=== PATIENT | male | born 1975 | race Asian ===

== ENCOUNTER 2023-12-27 13:43 | Emergency (ER) | payer OTHER ==
[~2023-12-27] VITALS: Ht 175.3 cm; Wt 78.1 kg
[2023-12-27] MEDS: KETOROLAC 30 MG/ML 1ML VIAL IV ONE (17:23)
[2023-12-27] MEDS: METOCLOPRAMIDE INJ 10MG/2ML VIAL IV ONE (17:23)
[2023-12-27] MEDS: NS 1,000 ML IV ONE (17:23)
[2023-12-27] MEDS: diphenhydrAMINE 50MG/ML VIAL IV ONE (17:23)
[2023-12-27] MEDS ORDERED: RIZA10TA64 PO (19:52)
[2023-12-27 20:07] VITALS: BP 132/81; TEMP 99.3; O2SAT 98
== END 2023-12-27 20:06 | disposition home or self-care (01) ==
LOC: M ED 13:43
DX: G43.909 Migraine, unspecified, not intractable, without status migrainosus (principal); Z79.52 Long term (current) use of systemic steroids
CPT/HCPCS: 70450; 96374; 96375; 99284; J1100; J1200; J1885; J2765

== ENCOUNTER 2023-12-31 12:30 | Inpatient (IN) | payer OTHER ==
[~2023-12-31] VITALS: Ht 175.3 cm; Wt 77.2 kg
[~2023-12-31 12:30] MED LIST: RIZA10TA64 PO
[2023-12-31] MEDS: diazePAM 10MG/2ML SYRINGE IV ONE (13:19)
[2023-12-31] MEDS: KETOROLAC 30 MG/ML 1ML VIAL IV ONE (13:20)
[2023-12-31] MEDS: NS 1,000 ML IV ONE ×2 (13:21→13:25)
[2023-12-31 13:24] LABS: BASO % 0.4 % (0.0-1.0); EOS % 0.2 % (0.0-3.0); HEMATOCRIT 46.3 % (42.0-52.0); HEMOGLOBIN 16.4 g/dl (13.5-17.5); LYMPH # 1.5 10^3/uL (1.5-5.0); LYMPH % 14.5 % (24.0-44.0); MEAN CORPUSCULAR HEMOGLOBIN 30.2 pg (27.0-33.0); MEAN CORPUSCULAR HGB CONC 35.4 g/dl (32.0-36.5); MEAN CORPUSCULAR VOLUME 85.3 fl (80.0-96.0); MONO # 0.4 10^3/uL (0.0-0.8); MONO % 3.8 % (2.0-8.0); NEUTROPHILS # 8.3 10^3/uL (1.5-8.5); NEUTROPHILS % 80.5 % (36.0-66.0); PLATELET COUNT, AUTOMATED 349 10^3/uL (150-450); RED BLOOD COUNT 5.43 10^6/uL (4.30-6.10); WHITE BLOOD COUNT 10.3 10^3/uL (4.0-10.0)
[2023-12-31 13:42] LABS: ALBUMIN 3.9 G/DL (3.2-5.2); ALKALINE PHOSPHATASE 72 U/L (46-116); ALT/SGPT 29 U/L (7.0-40); AST/SGOT 19 U/L (<34); BILIRUBIN,DIRECT 0.2 MG/DL (<0.4); BILIRUBIN,TOTAL 0.6 MG/DL (0.3-1.2); BLOOD UREA NITROGEN 17 MG/DL (9-23); CALCIUM LEVEL 9.3 MG/DL (8.5-10.1); CARBON DIOXIDE LEVEL 25 MMOL/L (20-31); CHLORIDE LEVEL 102 MMOL/L (98-107); CREATININE FOR GFR 0.84 MG/DL (0.70-1.30); GLOMERULAR FILTRATION RATE > 60.0 (>60); GLUCOSE, FASTING 125 MG/DL (60-100); POTASSIUM SERUM 3.7 MMOL/L (3.5-5.1); SODIUM LEVEL 133 MMOL/L (136-145); TOTAL PROTEIN 7.4 G/DL (5.7-8.2)
[2023-12-31 13:44] LABS: OSMOLALITY SERUM 288 MOSM/KG (275-295)
[2023-12-31] MEDS ORDERED: ACETAMINOPHEN TAB 650MG DOSE (2X325MG) PO PRN (17:05)
[2023-12-31] MEDS: LIDOCAINE 2% W/EPINEPHRINE 20ML VIAL **PRES FREE INJ ONE (17:10)
[2023-12-31] MEDS: MECLIZINE 25 MG TABLET PO ONE (17:36)
[2023-12-31 17:44] LABS: CSF TUBE# CELL CNT TUBE 4
[2023-12-31 17:45] LABS: APPEARANCE, CSF CLEAR (CLEAR); COLOR, CSF COLORLESS (COLORLESS)
[2023-12-31 18:08] LABS: CSF TUBE# GLU TUBE 2
[2023-12-31 18:25] LABS: CSF TUBE# TP TUBE 2
[2023-12-31 18:40] VITALS: BP 144/89; TEMP 97.9; O2SAT 100
[2023-12-31 18:50] LABS: TOTAL PROTEIN,CSF 325.2 MG/DL (15-45)
[2023-12-31] MEDS ORDERED: VANCOMYCIN HCL 1,000 MG, VIAL MATE ADAPTER 1 EACH in D5W 250 ML IV SCH (19:10)
[2023-12-31] MEDS ORDERED: ACYCLOVIR IV SCH (19:10)
[2023-12-31] MEDS ORDERED: D5W MINI IV SCH (19:10)
[2023-12-31] MEDS ORDERED: METO5TAB2 PO (19:24)
[2023-12-31] MEDS ORDERED: RIZA10TA2 PO (19:24)
[2023-12-31] MEDS ORDERED: ACET1TAB55 PO (19:24)
[2023-12-31] MEDS ORDERED: VALA1TAB5 PO (19:24)
[2023-12-31] MEDS ORDERED: FLON1SPR NARES (19:24)
[2023-12-31] MEDS ORDERED: AMOX875T PO (19:24)
[2023-12-31] MEDS ORDERED: HOME MED LIST COMPLETE! XX SCH (19:25)
[2023-12-31] MEDS: TAMSULOSIN 0.4 MG CAP PO SCH (20:32)
[2023-12-31 20:37] VITALS: BP 137/85; TEMP 98.2; O2SAT 100
[2023-12-31] MEDS: cefTRIAXone SOD 2 GM in D5W MINI-BAG PLUS 50 ML IV SCH (21:48)
[2023-12-31] MEDS: VANCOMYCIN HCL 750 MG, VIAL MATE ADAPTER 1 EACH in D5W 250 ML IV ONE ×2 (22:48)
[2023-12-31] MEDS: KETOROLAC 30 MG/ML 1ML VIAL IV PRN (22:49)
[2024-01-01] MEDS: ACYCLOVIR IV SCH ×2 (00:59→22:38)
[2024-01-01] MEDS: NS IV SCH ×2 (00:59→22:38)
[2024-01-01] MEDS: NORCO, ANEXSIA 5/325MG TABLET (HYDROcodone/ACETAMINOPHEN) PO ONE (02:16)
[2024-01-01] MEDS: VANCOMYCIN HCL 1,000 MG, VIAL MATE ADAPTER 1 EACH in D5W 250 ML IV SCH ×2 (05:44→17:34)
[2024-01-01 05:47] VITALS: BP 126/74; TEMP 97.5; O2SAT 96
[2024-01-01 06:47] LABS: HEMATOCRIT 47.4 % (42.0-52.0); HEMOGLOBIN 16.3 g/dl (13.5-17.5); MEAN CORPUSCULAR HEMOGLOBIN 29.6 pg (27.0-33.0); MEAN CORPUSCULAR HGB CONC 34.4 g/dl (32.0-36.5); PLATELET COUNT, AUTOMATED 350 10^3/uL (150-450); RED BLOOD COUNT 5.51 10^6/uL (4.30-6.10); WHITE BLOOD COUNT 8.4 10^3/uL (4.0-10.0)
[2024-01-01 07:07] LABS: BLOOD UREA NITROGEN 15 MG/DL (9-23); CALCIUM LEVEL 9.3 MG/DL (8.5-10.1); CARBON DIOXIDE LEVEL 26 MMOL/L (20-31); CHLORIDE LEVEL 102 MMOL/L (98-107); CREATININE FOR GFR 0.74 MG/DL (0.70-1.30); GLOMERULAR FILTRATION RATE > 60.0 (>60); GLUCOSE, FASTING 175 MG/DL (60-100); POTASSIUM SERUM 4.2 MMOL/L (3.5-5.1); SODIUM LEVEL 134 MMOL/L (136-145)
[2024-01-01] MEDS: MIRALAX *UNIT DOSE* 17GM PACKET PO SCH ×2 (08:54→12:33)
[2024-01-01] MEDS ORDERED: KETOROLAC 30 MG/ML 1ML VIAL IV PRN (09:45)
[2024-01-01] MEDS ORDERED: MECLIZINE 25 MG TABLET PO PRN (09:45)
[2024-01-01] MEDS: KETOROLAC 30 MG/ML 1ML VIAL IV SCH (12:31)
[2024-01-01] MEDS: FINASTERIDE 5MG TAB PO SCH (12:31)
[2024-01-01] MEDS: ACETAMINOPHEN 500 MG TAB PO SCH (12:32)
[2024-01-01] MEDS: oxyCODONE 5MG TAB PO PRN (12:32)
[2024-01-01] MEDS: METAMUCIL (PSYLLIUM) PACKET PO SCH (12:33)
[2024-01-01 14:00] VITALS: BP 134/86; TEMP 97.3; O2SAT 100
[2024-01-01 14:06] LABS: APPEARANCE, URINE CLEAR (CLEAR); BACTERIA, URINE AUTO NEGATIVE (NEGATIVE); BILIRUBIN, URINE AUTO NEGATIVE (NEGATIVE); BLOOD, URINE BLOOD NEGATIVE (NEGATIVE); COLOR, URINE YELLOW (YELLOW); GLUCOSE, URINE (UA) AUTO 1+ mg/dL (NEGATIVE); KETONE, URINE AUTO NEGATIVE (NEGATIVE); LEUKOCYTE ESTERASE, URINE AUTO NEGATIVE (NEGATIVE); NITRITE, URINE AUTO NEGATIVE (NEGATIVE); PROTEIN, URINE AUTO NEGATIVE (NEGATIVE); RBC, URINE AUTO 2 /HPF (0-3); SQUAMOUS EPITHELIAL CELL UR AU 0 /HPF (0-6); UROBILINOGEN, URINE AUTO 0.2 mg/dL (0.0-2.0); WBC, URINE AUTO 0 /HPF (0-3)
[2024-01-01 19:50] VITALS: BP 134/85; TEMP 97.7; O2SAT 99
[2024-01-02] MEDS: ONDANSETRON 4MG 2ML VIAL IV PRN (03:07)
[2024-01-02 04:30] VITALS: BP 135/75; TEMP 97.5; O2SAT 99
[2024-01-02 09:23] LABS: BASO % 0.1 % (0.0-1.0); HEMATOCRIT 43.4 % (42.0-52.0); HEMOGLOBIN 15.7 g/dl (13.5-17.5); LYMPH # 2.2 10^3/uL (1.5-5.0); LYMPH % 9.9 % (24.0-44.0); MEAN CORPUSCULAR HEMOGLOBIN 30.7 pg (27.0-33.0); MEAN CORPUSCULAR HGB CONC 36.2 g/dl (32.0-36.5); MEAN CORPUSCULAR VOLUME 84.9 fl (80.0-96.0); MONO # 0.9 10^3/uL (0.0-0.8); MONO % 4.1 % (2.0-8.0); NEUTROPHILS # 18.7 10^3/uL (1.5-8.5); NEUTROPHILS % 85.4 % (36.0-66.0); PLATELET COUNT, AUTOMATED 360 10^3/uL (150-450); RED BLOOD COUNT 5.11 10^6/uL (4.30-6.10); WHITE BLOOD COUNT 21.9 10^3/uL (4.0-10.0)
[2024-01-02] MEDS: KETOROLAC 30 MG/ML 1ML VIAL IV SCH (09:36)
[2024-01-02] MEDS: oxyCODONE 5MG TAB PO PRN (09:37)
[2024-01-02] MEDS: LACTULOSE 20GM/30ML SYRUP UDC PO SCH (09:38)
[2024-01-02 09:51] LABS: BLOOD UREA NITROGEN 16 MG/DL (9-23); CALCIUM LEVEL 9.2 MG/DL (8.5-10.1); CARBON DIOXIDE LEVEL 24 MMOL/L (20-31); CHLORIDE LEVEL 101 MMOL/L (98-107); CREATININE FOR GFR 0.71 MG/DL (0.70-1.30); GLOMERULAR FILTRATION RATE > 60.0 (>60); GLUCOSE, FASTING 155 MG/DL (60-100); POTASSIUM SERUM 4.1 MMOL/L (3.5-5.1); SODIUM LEVEL 135 MMOL/L (136-145)
[2024-01-02] MEDS: MECLIZINE 25 MG TABLET PO SCH (11:21)
[2024-01-02 11:31] LABS: INR 1.05; PROTHROMBIN TIME 13.4 SECONDS (12.5-14.5)
[2024-01-02 14:20] VITALS: BP 137/82; TEMP 97.5; O2SAT 99
[2024-01-02] MEDS: RIVAROXABAN 10MG TAB (XARELTO) PO SCH (18:02)
[2024-01-02] MEDS: GABAPENTIN 100 MG CAP PO SCH (18:02)
[2024-01-02 21:00] VITALS: BP 128/83; TEMP 98.1; O2SAT 99
[2024-01-03 04:40] VITALS: BP 127/81; TEMP 97.5; O2SAT 97
[2024-01-03 07:36] LABS: HEMATOCRIT 43.2 % (42.0-52.0); HEMOGLOBIN 15.3 g/dl (13.5-17.5); MEAN CORPUSCULAR HEMOGLOBIN 30.5 pg (27.0-33.0); MEAN CORPUSCULAR HGB CONC 35.4 g/dl (32.0-36.5); MEAN CORPUSCULAR VOLUME 86.1 fl (80.0-96.0); PLATELET COUNT, AUTOMATED 348 10^3/uL (150-450); RED BLOOD COUNT 5.02 10^6/uL (4.30-6.10); WHITE BLOOD COUNT 16.5 10^3/uL (4.0-10.0)
[2024-01-03] MEDS ORDERED: KETOROLAC 30 MG/ML 1ML VIAL IV PRN (10:15)
[2024-01-03] MEDS: ONDANSETRON 4MG ORAL DISINTEGRATING TAB SL SCH (12:00)
[2024-01-03] MEDS: MECLIZINE 25 MG TABLET PO SCH (12:01)
[2024-01-03] MEDS: KETOROLAC 30 MG/ML 1ML VIAL IV PRN (12:02)
[2024-01-03 15:00] VITALS: BP 124/80; TEMP 98.2; O2SAT 97
[2024-01-03 21:00] VITALS: BP 135/84; TEMP 98.1; O2SAT 97
[2024-01-04 05:45] VITALS: BP 118/76; TEMP 98.1; O2SAT 97
[2024-01-04] MEDS: BISACODYL 10MG SUPP PR SCH (06:13)
[2024-01-04 08:03] LABS: BASO % 0.3 % (0.0-1.0); EOS # 0.1 10^3/uL (0.0-0.5); EOS % 0.5 % (0.0-3.0); HEMATOCRIT 45.1 % (42.0-52.0); HEMOGLOBIN 15.8 g/dl (13.5-17.5); LYMPH # 3.7 10^3/uL (1.5-5.0); LYMPH % 24.3 % (24.0-44.0); MEAN CORPUSCULAR HEMOGLOBIN 30.1 pg (27.0-33.0); MEAN CORPUSCULAR VOLUME 85.9 fl (80.0-96.0); MONO # 1.5 10^3/uL (0.0-0.8); MONO % 9.6 % (2.0-8.0); NEUTROPHILS # 9.7 10^3/uL (1.5-8.5); NEUTROPHILS % 64.3 % (36.0-66.0); PLATELET COUNT, AUTOMATED 346 10^3/uL (150-450); RED BLOOD COUNT 5.25 10^6/uL (4.30-6.10); WHITE BLOOD COUNT 15.1 10^3/uL (4.0-10.0)
[2024-01-04] MEDS ORDERED: PILL CUTTER 1 EACH XX PRN (08:25)
[2024-01-04] MEDS: CETIRIZINE (ZyrTEC) 10 MG TAB PO SCH (08:58)
[2024-01-04 14:00] VITALS: BP 127/89; TEMP 98.2; O2SAT 98
[2024-01-04] MEDS: MECLIZINE 25 MG TABLET PO SCH (15:15)
[2024-01-04 20:58] VITALS: BP 128/89; TEMP 97.7; O2SAT 98
[2024-01-04] MEDS: NS IV SCH (21:00)
[2024-01-04] MEDS: ACYCLOVIR SODIUM IV SCH (21:00)
[2024-01-05 05:30] VITALS: BP 127/88; TEMP 98.4; O2SAT 96
[2024-01-05 08:53] LABS: HEMATOCRIT 48.2 % (42.0-52.0); HEMOGLOBIN 16.4 g/dl (13.5-17.5); MEAN CORPUSCULAR HEMOGLOBIN 29.8 pg (27.0-33.0); MEAN CORPUSCULAR VOLUME 87.6 fl (80.0-96.0); PLATELET COUNT, AUTOMATED 352 10^3/uL (150-450); WHITE BLOOD COUNT 12.4 10^3/uL (4.0-10.0)
[2024-01-05] MEDS ORDERED: BISACODYL 10MG SUPP PR PRN (10:05)
[2024-01-05] MEDS ORDERED: LACTULOSE 20GM/30ML SYRUP UDC PO PRN (10:05)
[2024-01-05 14:00] VITALS: BP 125/89; TEMP 98.1; O2SAT 96
[2024-01-05 21:36] VITALS: BP 132/92; TEMP 98.2; O2SAT 98
[2024-01-06 05:59] VITALS: BP 127/90; TEMP 98.2; O2SAT 98
[2024-01-06 06:06] LABS: HEMATOCRIT 46.9 % (42.0-52.0); HEMOGLOBIN 16.1 g/dl (13.5-17.5); MEAN CORPUSCULAR HEMOGLOBIN 30.2 pg (27.0-33.0); MEAN CORPUSCULAR HGB CONC 34.3 g/dl (32.0-36.5); PLATELET COUNT, AUTOMATED 356 10^3/uL (150-450); RED BLOOD COUNT 5.33 10^6/uL (4.30-6.10); WHITE BLOOD COUNT 12.3 10^3/uL (4.0-10.0)
[2024-01-06 06:37] LABS: BLOOD UREA NITROGEN 12 MG/DL (9-23); CALCIUM LEVEL 9.1 MG/DL (8.5-10.1); CARBON DIOXIDE LEVEL 29 MMOL/L (20-31); CHLORIDE LEVEL 100 MMOL/L (98-107); CREATININE FOR GFR 1.01 MG/DL (0.70-1.30); GLOMERULAR FILTRATION RATE > 60.0 (>60); GLUCOSE, FASTING 146 MG/DL (60-100); POTASSIUM SERUM 4.9 MMOL/L (3.5-5.1); SODIUM LEVEL 136 MMOL/L (136-145)
[2024-01-06] MEDS: NS 1,000 ML IV SCH (10:11)
[2024-01-06 14:00] VITALS: BP 137/84; TEMP 98.2; O2SAT 98
[2024-01-06 21:00] VITALS: BP 153/93; TEMP 97.3; O2SAT 98
[2024-01-07 06:18] LABS: HEMATOCRIT 45.2 % (42.0-52.0); HEMOGLOBIN 15.3 g/dl (13.5-17.5); MEAN CORPUSCULAR HEMOGLOBIN 30.2 pg (27.0-33.0); MEAN CORPUSCULAR HGB CONC 33.8 g/dl (32.0-36.5); MEAN CORPUSCULAR VOLUME 89.2 fl (80.0-96.0); PLATELET COUNT, AUTOMATED 341 10^3/uL (150-450); RED BLOOD COUNT 5.07 10^6/uL (4.30-6.10); WHITE BLOOD COUNT 10.3 10^3/uL (4.0-10.0)
[2024-01-07 06:46] LABS: BLOOD UREA NITROGEN 11 MG/DL (9-23); CALCIUM LEVEL 8.8 MG/DL (8.5-10.1); CARBON DIOXIDE LEVEL 30 MMOL/L (20-31); CHLORIDE LEVEL 99 MMOL/L (98-107); CREATININE FOR GFR 0.94 MG/DL (0.70-1.30); GLOMERULAR FILTRATION RATE > 60.0 (>60); GLUCOSE, FASTING 162 MG/DL (60-100); POTASSIUM SERUM 4.2 MMOL/L (3.5-5.1); SODIUM LEVEL 137 MMOL/L (136-145)
[2024-01-07] MEDS ORDERED: ACETAMINOPHEN 500 MG TAB PO PRN (10:50)
[2024-01-07] MEDS: NS 1,000 ML IV SCH (10:56)
[2024-01-07] MEDS ORDERED: FINA5TAB2 PO (11:49)
[2024-01-07] MEDS ORDERED: ACYC1CAP20 PO ×2 (11:49→12:09)
[2024-01-07] MEDS ORDERED: GABA-1171 PO (11:49)
[2024-01-07] MEDS ORDERED: MECL-86 PO ×2 (11:49→12:09)
[2024-01-07] MEDS ORDERED: FLOM0.4C39 PO (11:49)
[2024-01-07] MEDS ORDERED: MIRA3350 PO (12:09)
[2024-01-07] MEDS ORDERED: VALT1TAB PO (12:26)
[2024-01-07] MEDS ORDERED: RIZA10TA2 PO (13:39)
[2024-01-07 14:00] VITALS: BP 138/90; TEMP 98.6; O2SAT 99
[2024-01-07 17:11] LABS: IMMUNOGLOBULIN A 177.3 MG/DL (40-350); IMMUNOGLOBULIN G 1145 MG/DL (650-1600)
[2024-01-07 17:55] LABS: HIV 1&2 SCREEN NEGATIVE (NEGATIVE)
[2024-01-07] MEDS ORDERED: valACYclovir HCL 500 MG TAB PO SCH ×2 (22:00)
[2024-01-07] MEDS ORDERED: valACYclovir HCL 500 MG TAB PO ONE (22:00)
== END 2024-01-07 18:19 | disposition home health service (06) | DRG 865 ==
LOC: EDBD 12:30 → M ED 12:30 → M ED INP 16:32 → M MSPAV 18:38
PROVIDERS: ADMIT Student in an Organized Health Care Education/Training Program; ATTEND Student in an Organized Health Care Education/Training Program
DX: B01.0 Varicella meningitis (principal); B02.1 Zoster meningitis; N17.9 Acute kidney failure, unspecified; R42 Dizziness and giddiness; K59.00 Constipation, unspecified; G43.909 Migraine, unspecified, not intractable, without status migrainosus; Z79.899 Other long term (current) drug therapy

== ENCOUNTER → 2024-05-05 | Outpatient (CLI) | payer OTHER ==
[~2024-05-05] MED LIST changes: +ACET1TAB55 PO; +ACYC1CAP20 PO; +AMOX875T PO; +FINA5TAB2 PO; +FLOM0.4C39 PO; +FLON1SPR NARES; +GABA-1171 PO; +MECL-86 PO; +METO5TAB2 PO; +MIRA3350 PO; +PROHANCE 279.3MG/ML 15ML VIAL ONE; +RIZA10TA2 PO; +VALA1TAB5 PO; +VALT1TAB PO
== END ==
LOC: M PLAIMG 09:56
PROVIDERS: ATTEND Internal Medicine Infectious Disease
DX: R20.0 Anesthesia of skin (principal); M47.816 Spondylosis without myelopathy or radiculopathy, lumbar region; M47.817 Spondylosis without myelopathy or radiculopathy, lumbosacral region; M51.36 Other intervertebral disc degeneration, lumbar region; M51.37 Other intervertebral disc degeneration, lumbosacral region
CPT/HCPCS: 72158; A9576